=== PATIENT | male | born 1945 | race Caucasian/White ===

== ENCOUNTER 2016-08-12 06:36 | Day surgery (SDC) | payer OTHER ==
[2016-08-12] MEDS ORDERED: LIDOCAINE 1% 20 ML MDV ONE (07:11)
[2016-08-12] MEDS ORDERED: LIDOCAINE 1% 20 ML MDV ID ONE (07:11)
[2016-08-12] MEDS ORDERED: VERSED ONE (08:15)
[2016-08-12] MEDS ORDERED: DIPRIVAN 20 ML VIAL IVP ONE (08:15)
[2016-08-12 09:34] VITALS: BP 136/77; TEMP 98
--- NOTE | 2016-08-12 13:24 | OP ---
PROCEDURE: COLONOSCOPY TO THE CECUM. ENDOSCOPIST: Wenceslao SLATRE M.D. INDICATION: History of Polyps INSTRUMENT: [id number]. MEDICATION: PER ANESTHESIA. PROCEDURE: The patient was positioned for colonoscopy. The digital rectal exam was negative. The colonoscope was inserted through the anus and advanced to the cecum. The cecum was identified using the ileocecal valve and the appendiceal orifice as landmarks. The scope was slowly withdrawn through an adequately prepped colon. Careful inspection made of each colonic segment while the scope is withdrawn in a circumferential fashion. Care is taken to inspect the proximal side of the ileocecal valve, haustral folds, flexures and rectal valve. Scattered diverticuli were seen in the left colon. Retroflex exam was notable for hemorrhoids. There is evidence of polyp or mass. The patient tolerated the procedure without immediate complication. Withdraw time 10 minute 51 sec. PLAN: 1. Suggest repeat colonoscopy in five years. CC: Dr. Perrin. MTDD
== END 2016-08-12 09:31 | disposition home or self-care (01) ==
LOC: SURG 06:36
PROVIDERS: ATTEND Internal Medicine Gastroenterology
DX: Z09 Encounter for follow-up examination after completed treatment for conditions other than malignant neoplasm (principal); Z86.010 Personal history of colon polyps; K57.30 Diverticulosis of large intestine without perforation or abscess without bleeding; E11.9 Type 2 diabetes mellitus without complications; K64.9 Unspecified hemorrhoids
CPT/HCPCS: 00810; G0105; 82962

== ENCOUNTER 2017-01-29 07:11 | Outpatient (CLI) | payer OTHER ==
--- NOTE | 2017-01-29 09:27 | US ---
EXAM: Renal ultrasound HISTORY: Flank pain with urinary frequency TECHNIQUE: Gomez scale and color Doppler imaging of the kidneys and urinary bladder was performed. Comparison 12/01/2014 renal ultrasound. FINDINGS: The right kidney measures 11.3 cm in length. There is no hydronephrosis. The renal paren chymal echotexture appears normal. There is an extrarenal pelvis on the right. The left kidney measures 10.7 cm in length. There is no hydronephrosis. The renal parenchymal echot exture appears normal. There is a hypoechoic lesion seen within the inferior pole of the left kidney . Findings measure 2.7 cm x 3.0 cm x 2.0 cm. There is a normal appearance of the urinary bladder seen within the pelvis. IMPRESSION: There is no obstructive uropathy. There is a hypoechoic complex lesion seen within the inferior pole of the left kidney measuring up to 2.7 cm. A soft tissue neoplasm cannot be excluded. CT scan of the abdomen with and without contrast or MRI of the abdomen can be obtained for further evaluation.
== END 2017-01-29 07:12 | disposition home or self-care (01) ==
LOC: RAD 07:11
PROVIDERS: ATTEND Family Medicine
DX: N40.1 Benign prostatic hyperplasia with lower urinary tract symptoms (principal); R39.12 Poor urinary stream; R35.0 Frequency of micturition
CPT/HCPCS: 76770